=== PATIENT | female | born 1945 | race Caucasian/White ===

== ENCOUNTER 2021-03-02 16:03 | Emergency (ER) | payer MEDICARE, OTHER | END 2021-03-02 18:20 | disposition other institution (70) | LOC: FER 16:03 | DX: T17.228A Food in pharynx causing other injury, initial encounter (principal); E78.5 Hyperlipidemia, unspecified; I48.91 Unspecified atrial fibrillation; I10 Essential (primary) hypertension; Z88.8 Allergy status to other drugs, medicaments and biological substances | CPT/HCPCS: J1610 ==